=== PATIENT | male | born 1995 | race Caucasian/White ===

== ENCOUNTER → 2018-01-24 | Outpatient (CLI) | payer BC ==
[~2018-01-24] MED LIST: ANTI-INFLAMMATORY; ASACOL PO; ATARAX 25MG25 MG/TAB PO; PHENERGAN W/CO120 M1 PO; PREDNISONE20 MG PO; VENTOLIN0.09 MG IH; ZANTAC 150MG T150 MG PO
== END ==
LOC: COL.RAD 14:00
DX: R22.1 Localized swelling, mass and lump, neck (principal)
CPT/HCPCS: Q9967